=== PATIENT | male | born 1995 | race Caucasian/White ===

== ENCOUNTER 2019-09-05 18:52 | Emergency (ER) | payer OTHER ==
[~2019-09-05] VITALS: Ht 190.5 cm; Wt 104.3 kg
[2019-09-05 19:45] LABS: INFLUENZA A ANTIGEN Negative (Negative); INFLUENZA B ANTIGEN Negative (Negative)
[2019-09-05] MEDS ORDERED: PROAIR HFA8.5 GM INH (19:48)
[2019-09-05] MEDS ORDERED: MEDROLDOSEPACK PO (19:48)
[2019-09-05] MEDS ORDERED: ZPAK PO (19:48)
[2019-09-05 20:06] VITALS: BP 164/88
== END 2019-09-05 20:08 | disposition home or self-care (01) ==
LOC: M.ERS 18:52
PROVIDERS: Physician Assistant
DX: J20.9 Acute bronchitis, unspecified (principal); Z88.0 Allergy status to penicillin; Z88.2 Allergy status to sulfonamides

== ENCOUNTER 2021-03-17 21:05 | Emergency (ER) | payer OTHER ==
[~2021-03-17] VITALS: Ht 190.5 cm; Wt 99.8 kg
[~2021-03-17 21:05] MED LIST: MEDROLDOSEPACK PO; PROAIR HFA8.5 GM INH; ZPAK PO
[2021-03-17 21:17] VITALS: BP 153/94
--- NOTE | 2021-03-18 17:03 | EKG ---
[place] [address] ELECTROCARDIOGRAM REPORT Name: MARGARET FONTAINE [id number] Admission: 03/17/21 Attend Phys: Discharge: 03/18/21 Date of : [birth year] Date of Service: 03/17/212112 Report #: [id number] THIS REPORT FOR: //name// [facility] ED Test Date: 2021-03-17 Test Time: 21:13:04 Pat Name: MARGARET FONTAINE Department: Room: Gender: Slide Attendant: [facility] : 1995 Requested By: Virginia Hsu Order Number: [id number] MD: Kyler Calderon Measurements Intervals [place] Rate: 78 P: 23 OR: 162 QRS: 22 QRSD: 87 T: 11 QT: 373 QTc: 425 Interpretive Statements Sinus rhythm No previous ECG available for comparison Electronically Signed On 03-18-2021 17:03:06 CDT by Kyler Calderon [email or web address] <ELECTRONICALLY SIGNED> By: Kyler Calderon MD, [facility] 03/18/211702 12 12 Kyler Calderon MD, FACC /EPI
== END 2021-03-18 00:01 | disposition left against medical advice (07) ==
LOC: M.ERS 21:05
DX: Z53.21 Procedure and treatment not carried out due to patient leaving prior to being seen by health care provider (principal); Z20.822 Contact with and (suspected) exposure to COVID-19